=== PATIENT | female | born 1970 | race African-American/Black ===

== ENCOUNTER 2019-03-01 15:12 | Emergency (ER) | payer MEDICARE, MEDICAID ==
[~2019-03-01] VITALS: Ht 165.1 cm; Wt 64.0 kg
[2019-03-01] MEDS ORDERED: LORAZEPAM 1MG TABLET PO ONE (15:45)
[2019-03-01 16:57] VITALS: BP 123/71
== END 2019-03-01 17:04 | disposition home or self-care (01) ==
LOC: ER 15:12
DX: F41.0 Panic disorder [episodic paroxysmal anxiety] (principal); I10 Essential (primary) hypertension
CPT/HCPCS: 99284